=== PATIENT | female | born 1990 | race Caucasian/White ===

== ENCOUNTER → 2020-01-20 13:11 | Outpatient (CLI) | payer MEDICAID, SELFPAY ==
--- NOTE | 2020-01-20 13:12 | US_ITS ---
STUDY: SECOND AND THIRD TRIMESTER OBSTETRICAL ULTRASOUND REASON FOR EXAM: Female, 29 years old anatomy LMP: 08/07/2019. TECHNIQUE: Transabdominal TECHNICAL QUALITY: Adequate. PRIOR ULTRASOUND: None. FINDINGS: There is a single intrauterine fetus. The fetus is in a cephalic presentation. There is demonstrated cardiac activity with a heart rate of 137 bpm. There is a normal amniotic fluid volume. The largest amniotic fluid pocket measures 8.2 cm x 4.4 cm. The amniotic fluid index (DEEPA) is normal. The placenta is posterior in location and is not low lying. There are Grade 0 placental changes. The cervix measures 4.0 cm in length. There is a 5.7 cm x 4.1 cm x 4.7 cm echogenic density within the left ovary. Follow-up is recommended. This may represent a fat-containing mass such as a dermoid. BIOMETRY: BPD: 5.49 cm: 22 weeks, 5 days HC: 20.33 cm: 22 weeks, 3 days AC: 14.42 cm: 19 weeks, 5 days FL: 3.89 cm: 22 weeks, 3 days CI: 78.3% FL/BPD: 70.8% FL/HC: FL/AC: 27% HC/AC: age by current US: 22 weeks, 0 days. BRAYAN by current US: 05/25/2020. Estimated weight: 407 grams, +/- 60 grams. This is below the one percentile. This may be incorrect. Follow-up is recommended. Age by LMP: 23 weeks, 5 days. BRAYAN by LMP: 05/13/2020. ANATOMY: Gender: Female Cranium: Normal lateral ventricles. Normal choroid plexus. Normal cerebellum. Normal cisterna magna. Normal face, nose and lips. Chest: Normal 4-chamber heart. Abdomen/Pelvis: Normal diaphragm. The stomach is non-visualized. Normal abdominal wall. Normal cord insertion. Normal 3 vessel cord. Normal kidneys. Normal bladder. Spine: There is subcutaneous visualization of the entire spine due to positioning. Follow-up is recommended. Extremities: Normal bilateral upper extremities. Normal bilateral lower extremities. US/OB Anatomy Scan IMPRESSION: Single live intrauterine gestation with a mean gestational age of 22 weeks. Follow-up sonogram is recommended for further assessment of the weight as well as the spine. Electronically Signed: Ed Luong, at 14:57 EDT , Service support ,
== END ==
PROVIDERS: Referring Provider Obstetrics & Gynecology; Visit Provider Obstetrics & Gynecology
DX: Z36.9 Encounter for antenatal screening, unspecified (principal); Z3A.22 22 weeks gestation of pregnancy
CPT/HCPCS: 76805

== ENCOUNTER → 2020-01-29 11:17 | Outpatient (CLI) | payer MEDICAID, SELFPAY ==
[2020-01-29 10:12] VITALS: BMI 25.0
[2020-01-29 11:51] LABS: Absolute Lymphocyte Count 1.85 X10^3/uL (0.83-4.51); Absolute Neutrophil Count 10.9 X10^3/uL (2.0-7.7); Basophil# 0.06 X10^3/uL; Basophil% 0.4 % (0-1); Eosinophil# 0.21 X10^3/uL; Eosinophils% 1.5 % (0-5); Hematocrit 37.9 % (37-47); Hemoglobin 12.7 g/dL (12.0-15.0); Lymphocyte # 1.85 X10^3/ul (4.0); Lymphocyte % 13.5 % (19-41); Mean Corp Hgb Conc 33.5 g/dL (32-36); Mean Corpuscular Hgb 31.3 pg (27.0-32.0); Mean Corpuscular Volume 93.3 fL (81-99); Mean Platelet Vol. 11.1 fl (6.2-12.0); Monocyte# 0.57 X10^3/uL; Monocyte% 4.2 % (0-10); NRBC Flagged by Analyzer 0 % (0-5); Neutrophil # 10.92 X10^3/uL (2.7-7.7); Neutrophil % 79.6 % (47-70); Platelet Count 273 K/mm3 (150-450); RBC Distribution Width CV 13.2 % (11.6-14.6); RBC Distribution Width SD 45.1 fl (35.1-43.9); Red Blood Count 4.06 M/mm3 (4.2-5.4); White Blood Count 13.7 K/mm3 (4.4-11.0)
[2020-01-29 12:16] LABS: Amphetamine Urine VISTA POSITIVE (<1000 ng/mL); Barbiturate Urine VISTA NEGATIVE (< 200 ng/mL); Benzodiazepine Urine VISTA NEGATIVE (< 200 ng/mL); Cocaine Urine VISTA NEGATIVE (< 300 ng/mL); Ecstacy Urine VISTA POSITIVE (< 500 ng/mL); Methadone Urine VISTA NEGATIVE (< 300 ng/mL); PCP Urine VISTA NEGATIVE (< 25 ng/mL); THC Urine VISTA POSITIVE (< 50 ng/mL); Vista UDS pH Range 6
[2020-01-29 13:43] LABS: HIV - WCH Non-Reactive (Nonreactive); Hepatitis B Surface Antigen Non-Reactive (Nonreactive); Hepatitis C Antibody Non-Reactive (Nonreactive); Rubella IgG 81.2 IU/mL
[2020-01-29 14:14] LABS: Chlamydia Trachomatis by PCR Negative (Negative); Neisserai gonorrhoeae by PCR Negative (Negative); Probe Check PASS; Sample Adequacy Control PASS; Specimen Processing Control PASS
[2020-01-29 15:48] LABS: NATERA MAILED SPECIMEN
[2020-02-03 03:19] LABS: HPV APTIMA, High Risk Negative (Negative)
[2020-02-04 11:06] LABS: Rapid Plasmin Reagin (RPR) NONREACTIVE (NONREACTIVE)
== END ==
PROVIDERS: Referring Provider Obstetrics & Gynecology; Visit Provider Obstetrics & Gynecology
DX: Z34.82 Encounter for supervision of other normal pregnancy, second trimester (principal); Z31.430 Encounter of female for testing for genetic disease carrier status for procreative management
CPT/HCPCS: 80307; 85025; 86592; 86703; 86762; 86803; 86850; 86900; 86901; 87086; 87088; 87340; 87491; 87591; 87624; 88175; G0145

== ENCOUNTER 2020-05-05 09:20 | Inpatient (IN) | payer MEDICAID, SELFPAY ==
[2020-01-29 10:12] VITALS: BMI 25.0
[2020-05-05] VITALS (42 sets, daily range): BP systolic 112–209; BP diastolic 55–131; PULSE 50–100; RESP 16–18; TEMP 35.7–36.9; O2SAT 92–100; BMI 27.9
[2020-05-05] MEDS: Lactated Ringers 1,000 ML 200 ML IV (09:40)
[2020-05-05 10:03] LABS: ROM Internal Control Test YES-OK TO RESULT pt. (Internal QC)
[2020-05-05 10:06] LABS: ROM Patient Test POSITIVE (Negative)
[2020-05-05 10:39] LABS: Absolute Neutrophil Count 6.6 X10^3/uL (2.0-7.7); Basophil# 0.03 X10^3/uL; Basophil% 0.3 % (0-1); Eosinophil# 0.07 X10^3/uL; Eosinophils% 0.8 % (0-5); Hematocrit 32.9 % (37-47); Hemoglobin 10.3 g/dL (12.0-15.0); Lymphocyte % 19.3 % (19-41); Mean Corp Hgb Conc 31.3 g/dL (32-36); Mean Corpuscular Hgb 26.3 pg (27.0-32.0); Mean Corpuscular Volume 83.9 fL (81-99); Mean Platelet Vol. 12.8 fl (6.2-12.0); Monocyte% 4.6 % (0-10); NRBC Flagged by Analyzer 0 % (0-5); Neutrophil # 6.55 X10^3/uL (2.7-7.7); Neutrophil % 74.5 % (47-70); Platelet Count 164 K/mm3 (150-450); RBC Distribution Width CV 14.9 % (11.6-14.6); RBC Distribution Width SD 44.5 fl (35.1-43.9); Red Blood Count 3.92 M/mm3 (4.2-5.4); White Blood Count 8.8 K/mm3 (4.4-11.0)
[2020-05-05 10:54] LABS: Amphetamine Urine VISTA POSITIVE (<1000 ng/mL); Barbiturate Urine VISTA NEGATIVE (< 200 ng/mL); Benzodiazepine Urine VISTA NEGATIVE (< 200 ng/mL); Cocaine Urine VISTA NEGATIVE (< 300 ng/mL); Ecstacy Urine VISTA POSITIVE (< 500 ng/mL); Methadone Urine VISTA NEGATIVE (< 300 ng/mL); PCP Urine VISTA NEGATIVE (< 25 ng/mL); THC Urine VISTA POSITIVE (< 50 ng/mL); Vista UDS pH Range 7
[2020-05-05] MEDS: Lactated Ringers 500 ML 999 ML IV ×2 (11:15→12:50)
[2020-05-05 11:26] LABS: International Normalized Ratio 0.9; Prothrombin Time (Protime)PT. 11.8 SECONDS (11.7-14.9)
[2020-05-05 11:27] LABS: Partial Thromboplast Time 25.5 Seconds (24.1-36.2)
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
[2020-05-05 12:31] LABS: Group B Strep DNA By PCR Negative (Negative); Internal Control PASS; Probe Check PASS; Specimen Processing Control PASS
[2020-05-05] MEDS: fentaNYL-bupivacaine (epidural) 100 ML BAG EPIDURAL (13:43)
[2020-05-05] MEDS: Oxytocin 30 units/NS 500 ml 30 UNITS/500 ML IV.SOLN 334 UNITS IV (14:36)
--- NOTE | 2020-05-05 15:05 | PLAC_PTH ---
PATIENT: CHAITANYA FUENTES LOC: WP U#:[id number] AGE/SX: 29/F ROOM: WP002 RE05/05/[address]: Dr. Erin Bishop MD : 1990 BED: 1 DIS: 05/06/2020 SPEC #: [id number] RECD: 05/05/20 15:14 STATUS: ALEJANDRO REAnnabella #: [id number] BENNY: 05/05/20 15:[address]: Erin Bishop DEPT: SURGICAL PATHOLOGY RECD BY: Anjelica Levine ENTERED: 05/06/20 07:40 SP TYPE: PLACENTA OTHR DR: No Primary Care Phys Tissues: Placenta, NOS Procedures: Surgery Specimen Level V HEADER OPERATION: Vaginal delivery PRE-OP DIAGNOSIS: Labor TISSUE SUBMITTED: Placenta MICROSCOPIC DIAGNOSIS Loera placenta (551 gm): Umbilical cord - trivascular with no inflammation. Placental membranes - no pathologic change. Placental disc - focal intraparenchymal organizing hemorrhage, mildly increased intraparenchymal fibrin plaques and Myron-Rai change. AM:alicja 05/09/20 MICROSCOPIC DESCRIPTION Slides are reviewed. GROSS DESCRIPTION SPECIMEN: PLACENTA / CLINICAL INFORMATION: A. Weight: 3.17 kg B. Gestational Age: 37 weeks C. Sex: Female PLACENTAL WEIGHT (POST FIXATION): 551 gm PLACENTAL DIMENSIONS: 17 x 16 x 4 cm PLACENTAL SHAPE: Usual ovoid. Body of placenta is disrupted, completeness of placenta cannot be assessed. PLACENTAL WEIGHT FOR GESTATIONAL AGE: Within 10-99th percentile MEMBRANES - Present A. Insertion: Marginal B. Site of rupture from edge: Membranes are partially fragmented and appears to rupture 6 cm from edge of placental disc C. Color of membrane: Whittaker-tom D. Abnormalities: None UMBILICAL CORD - Present A. Color: Whittaker-tom B. Insertion: Paracentral C. Length: 35 cm D. Diameter: 1.2 cm E. Number of vessels: Three F. Abnormalities: None PLACENTAL DISC - Present A. Color of surface: Whittaker-tom B. surface abnormalities: None C. Maternal cotyledons: Intact with minimal tears D. Attached retro placental clot: No clot E. Cut surface: Dark red and spongy F. Lesions: None G. Separate clot: Absent SECTIONS SUBMITTED: 1. Membrane roll 2. Cord, maternal end 3. Cord, end 4. Placental disc, and maternal surfaces 5. Placental disc, and maternal surfaces 6. Placental disc, and maternal surfaces SJ:alicja 05/06/20 TC:5 CPT: 91070
[2020-05-05 15:30] LABS: Pathology Specimen OB SEE PATHOLOGY REPORT
[2020-05-05] MEDS: CLARIFY ORDER NOTE (15:49)
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
--- NOTE | 2020-05-05 16:30 | CASEMGMT ---
Social Work Labor and Delivery Unit Reason for intervention: Referral to [facility] ([facility]), Radha Martinez, extension [phone] Summary: Referral to Radha Martinez due to concerns regarding substance exposed in utero. Reported maternal drug screens positive for amphetamines, methamphetamine/MDMA, and cannabinoids upon admission on 05/05/2020 and then at the first care appointment on file dated 01/29/2020. Reported infant drug screen still pending. Additional concerns include MOB reporting the father of baby (FOB) also using methamphetamines, maternal history with children services and non-custody of any of her older children, maternal mental health history and not currently in treatment, and questionable housing with parents living in a camper. Also the parents do not quite have all of the needed supplies to care for the baby at home going. Brief maternal and infant histories provided. Assessment: Referral will be screened in for investigation and somebody from children services will be responding. Plan: Social work to continue to follow and assist. Baby should not be discharged to the MOB until safe plan can determined in conjunction with children services. Will be following back up with the MOB and FOB tomorrow, 05/06/2020, for provision of resources. No other services requested or indicated. -JUNIE Chand, ELBA *Information documented in this note generated via [employer] system*
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
[2020-05-05] MEDS: 0.9% Saline Lock 10 ML Syringe IV (18:13)
--- NOTE | 2020-05-05 21:24 | NURSING ---
Pt sleeping in bed with infant upon RN rounding. RN woke up pt, placed infant in crib. discussed safe sleeping/SIDS. pt drowsy, does not make eye contact during conversation and quickly falls back to sleep.
--- NOTE | 2020-05-05 23:45 | NURSING ---
As RN in room completing vitals and assessment, fob on phone and states what do you have? Im interested in a nerissa-ray player, im at the hospital, ill come tonight Once FOB hung up phone, MOB told FOB youre not going anywhere tonight
--- NOTE | 2020-05-05 23:55 | NURSING ---
FOB back in room. MOB laying in bed, groggy, answers questions appropriately and follows commands. pt asked FOB wheres our baby? as baby laying in crib right next to pt.
[2020-05-06] MEDS: Ibuprofen 600 MG Tablet PO ×2 (00:03→08:51)
--- NOTE | 2020-05-06 02:24 | NURSING ---
0118 mother requesting to go outside to smoke, RN discussed [facility] is a smoke free facility and smoking is not recommended. pt verbalized understanding and requested to go outside to smoke. to [place] 0125 mother signed assumption of risk form with mmd unit teacher and ambulated off unit accompanied by ALESSANDRA 0145 FOCali back on unit, walked into room 2, this RN went into room to return back to [facility]. ALESSANDRA found rummaging through belongings and stated can you keep her longer, i need to find my keys, shes (Tania) is outside enjoying herself, ill be back in a couple minutes, i wont be long i promise RN took baby back to [place] 0220 pt back on unit, reported to mmd unit teacher I got lost in elevator for 15 minutes, i couldnt figure out how to get out, the back door opened and i went out and then i went back into elevator. once back on unit, pt went back to room, did not call RN for infant to return
[2020-05-06 03:05] VITALS: BP 117/86; PULSE 85; RESP 16; TEMP 36.6; O2SAT 100
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
--- NOTE | 2020-05-06 07:56 | DCINST_ITS ---
Discharge Diet: No Restrictions Discharge Activity: Return to Normal Activity, May not drive while taking narcotic pain medications., May Shower May resume sexual activity in: 4-6 weeks Additional Activity Instructions:: Nothing in the vagina for 4-6 weeks. You may return to work/school in 6 weeks. Call your doctor if your incision/area has: Continuous Slow Oozing, Sudden Increased Bleeding, Increased Pain/ Swelling, Increased Redness, Foul Smelling Discharge Additional Instructions: If you experience any of the following, contact your healthcare provider. * Bleeding that soaks a pad every hour for 2 hours * Fever 100.4 or higher * Unrelieved incision or abdominal pain * Swelling, redness, discharge or bleeding from your incision or episiotomy site * Your incision begins to separate * Problems urinating (including inability to urinate or burning while urinating). * Visual changes * Severe headache * Flu-like symptoms * Pain or redness in one of both of your breasts * Pain, warmth, tenderness or swelling in your legs, especially the calf area * Frequent nausea and vomiting * Symptoms of depression or anxiety If you experience any of the following, call 911 or go to the nearest Emergency Room. * Chest pain * Problems breathing * Seizure activity * Partial or complete paralysis of a body part, slurred speech, weakness or drooping of the face, or a sudden inability to walk or hold your balance Allergies/Adverse Reactions: Allergies aspirin Allergy (Verified 05/05/20 09:48) Hives Fish Containing Products Allergy (Verified 05/05/20 09:48) Hives fluoxetine HCl [From Prozac] Allergy (Verified 05/05/20 09:48) Hives Penicillins Allergy (Verified 05/05/20 09:48) Hives venom-honey bee [bee venom (honey bee)] Allergy (Verified 05/05/20 09:48) Hives WOOL Allergy (Uncoded 05/05/20 09:48) Hives Medications to take at Discharge pediatric multivitamin 1 tab PO DAILY 01/29/20 Albuterol Sulfate [Proair Respiclick] 1 inh INHALATION PRN PRN 05/05/20 Famotidine 20 mg PO DAILY 05/05/20 Ibuprofen [Motrin] 600 mg PO Q6H PRN PRN #30 tab 05/06/20 The following prescriptions were given: Ibuprofen [Motrin] 600 mg PO Q6H PRN PRN #30 tab PRN Reason: Pain Transmission Status: Sent to [facility] When: Call to make an appointment with your doctor in 6 weeks. If you had elevated Blood Pressure or 4th degree laceration you will need to be seen in 2 weeks. Primary Care Physician: Care Physician,No Primary [Primary Care Provider] - Test Results: Test results from this visit will be discussed in further detail at your follow- up appointment, if applicable.
[2020-05-06 08:45] VITALS: BP 99/74; PULSE 72; RESP 16; TEMP 36.7
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
--- NOTE | 2020-05-06 12:34 | NURSING ---
[id number] nurse stepped into room baby on back in crib parked beside moms bed. Baby is crying loudly and continued to cry during nursing assessment. Mom nor dad woke up. Nurse spoke moms name several times loudly and then tapped several times on shoulder before mom woke up. Mom cont to be groggy during assessment. FOB sleeping in bed with mom- never woke up during baby crying or assessment and talking with mom.
[2020-05-06 14:00] VITALS: BP 115/77; PULSE 68; RESP 16; TEMP 36.6
--- NOTE | 2020-05-06 14:39 | NURSING ---
mom sleeping despite talking in room, slept through VS and fundal assessment. Did follow commands no eye opening or other interactions
--- NOTE | 2020-05-06 14:51 | CASEMGMT ---
Social Work Labor and Delivery Unit Reason for intervention: Collaboration with [facility] Nina Rdz, , extension [phone]. Collaboration with nursing staff. Meeting with mother of baby (M OB) and the reported father of baby (FOB). Summary: This law writer informed by nursing that MOB and FOB signed off the unit at approximately 1140. At approximately 1250 this law writer received a phone call from [facility] Nina Rdz updating this law writer that identified individuals for safety plan are not working out. Children services looking at filing for custody, and uncertain whether this will be able to occur today or Saturday. This law writer updated Nina to this law writer finding MOB sleeping with baby today, as well as reviewed additional nursing documentation from this shift. This law writer spoke with Nina again from children services at approximately 1330. Let Nina know that baby still in the nursery being cared for by nursing staff. No parent had come to claim the baby. This law writer alerted by nursing staff that FOB back on the unit at about 1330 as well, and wanting to speak to somebody about what is happening with the safety plan. This law writer then received a phone call from a woman named Chayito Morales, , identifying self as the FOB younger sister and wanting to know who to talk to about the status of the baby and the paternal side of the family willing to help care for the baby's needs. This law writer answered and generalities and explained that children services would be here to contact and make an inquiry. Also informed Chayito that if children services had been to see somebody they would have left a card and this may be something to suggest to the family who are in the hospital as well. This law writer presented to the [facility] hospital room. FOB was at the nursery door trying to get the baby. This law writer assisted with and verified baby bands to ensure safety of baby being delivered to the appropriate person. This law writer and FOB went to the room and this law writer found MOB sprawled across the bed, appearing pale, and sleepy. MOB was able to open her eyes and respond to questions but would immediately close eyes. This law writer made inquiry to both parents, as to whether the parents use any type of drugs while off the unit, as level of tiredness in [facility] a big change from earlier today. Both parents denied using any drugs. MOB reported she was gone from the unit for only 20 minutes, and had asked for the baby to be brought to her. MOB unable to say who she asked for such request. ALESSANDRA reports he just arrived back to the unit at 1330. This law writer reinforced that when parents are off the unit that breaks need to be short and need to be able to come back to take care of the baby. FOB started asking the baby if the baby was hungry. This law writer inquired as to what time the parents last fed the baby. MOB open her eyes and stated last feed was when children services was around, but neither parent able to state what time that was. This law writer suggested and strongly encouraged the parent start writing down feeding times. This law writer went to get more formula, and asked nursing to also look at the mother of baby, as this law writer concerned about MOB level of sleepiness. Upon this law writer returning to the room with some formula the MOB was no longer talking, but sleeping soundly, taking deep breaths, and snoring. MOB did not arouse or respond at all during this law writer and father of baby holding a conversation. This law writer asked FOB again whether MOB may have ingested any type of substances as the mother seems quite sleepy, more so than had earlier in the day. FOB reported that sometimes MOB acts like this when her blood sugar is low and voiced acknowledgement that MOB appearing pale. FOB reports he did not witness MOB taking any type of drugs, but that MOB did leave FOB's presence and came back to the hospital first. FOB states I was blowing up her phone after MOB left the car. 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 FOB inquired as to whether children services will not approve ALESSANDRA's mom, because the FOB has not been established as the biological father. This law writer explained that uncertain, but that this would be a question for children services. This law writer encouraged ALESSANDRA to to have his family call children services, if the family has further questions. This law writer left the room for a few minutes to check as to when MOB signed herself back in. Noted that MOB was signed out from 1145 until 1220. This law writer checked with 3 different nurses and none were made aware of MOB return nor had MOB arrived to the nursery asking for the baby to be brought back. This law writer returned back to the room and found FOB holding the baby and sitting on the couch, no movement had been made to feed the baby. FOB reported he was just thinking that his head was spinning with thoughts. Assessment: Children [facility] is actively working on a plan for baby. Awaiting on update. MOB minimally involved in conversation after returning from outside and now sleeping soundly. Nursing has been made aware. FOB is up, and alert, holding the baby in the room. FOB's conversation however was repetitive and talking about wanting to take the baby, and wondering why his mother might not be an appropriate person. Talking of it being time to grow up and be responsible for the baby. Plan: Awaiting update from children services. -JUNIE Chand MSW *Information documented in this note generated via [employer] system*
--- NOTE | 2020-05-06 18:25 | CASEMGMT ---
Social Work Labor and Delivery Unit Reason for intervention: Collaboration with [facility] Nina Rdz and Anny Landers; collaboration with nursing staff general education professor; communication with mother of baby (MOB) and father of baby (FOB) Summary: This tech writer presented back to mother of baby's room to check and see how MOB was doing. This tech writer could hear MOB and FOB through closed door with raised voices and cursing at each other. This tech writer entered the room to make sure things were okay and indeed found MOB and FOB voicing angry words at each other, and FOB packing bags up to leave. FOB left the room with belongings. Checked in with MOB as to how MOB was doing. MOB reports frustration with FOB accusing MOB of things. MOB also reports frustration because FOB reportedly alleged talking to professionals about MOB past children services cases. When this tech writer attempted to explore what FOB allegedly knew, the MOB was vague stating everything. This tech writer explored whether MOB had concerns for safety when arguing was going on. MOB denies any abuse or that FOB has ever physically hurt MOB. This tech writer stepped out of the room to take a phone call from Nina Rdz. This tech writer updated Nina to interactions with MOB and FOB after they returned from an outside smoking break. Updated to observation later this afternoon with MOB and FOB arguing. Nina reports that [facility] did file for custody of the baby and have been granted emergency custody. This tech writer back to MOB room. MOB making comments about not wanting to have the baby removed, and that would likely go ahead and relapse again on drugs if children services takes custody of the baby. This tech writer attempted to explore whether MOB might consider residential treatment if recommended. MOB adamantly denied as an option because did not want to do that to my other daughter. Let MOB know that children services was coming to the hospital to update. Children services arrived to the unit and this tech writer still in room with MOB.. MOB presented with emergency custody paperwork by children services sales representative gas service. Children services okayed for MOB to visit with the baby for a little bit as long as this was supervised. FOB returned back to the hospital and requested to see the baby, and agreed to take MOB home. This tech writer set clear boundaries with FOB as to what will and will not be tolerated on the unit. FOB agreed. This tech writer checked with MOB as to whether she was agreeable with FOB returning to the unit. MOB agreed. This tech writer also set expectations with the MOB. Provided MOB with [facility] resource list and depression packet. This was packed away in MOB personal belongings as MOB was preparing for discharge. Assessment: MOB and FOB exhibiting irritability and anger towards each other as evidenced by raised voices and cursing. MOB was alert and oriented during the later part of the afternoon. MOB claimed she was sleeping so heavily due to depression and having to deal with the FOB. MOB did become tearful when found out about loss of custody of the baby. FOB also was tearful and crying when presenting back to the hospital. MOB and FOB getting along with each other as they said their goodbyes to the baby. Note during private conversation with the MOB this afternoon, this tech writer did explore with MOB whether MOB had any thoughts of suicide during or at this time. MOB denied. Plan: MOB is discharging to home with the FOB transporting. MOB has been provided with community resource list and information on depression and anxiety. Baby will remain at [facility] today, with plan for discharge tomorrow 05/07/2020, so long as medically stable. [facility] now has custody of . We will make help me grow referral. No other services requested or indicated, however if needs arise there will be a social work specialist available on 05/07/2020. -JUNIE Chand, ELBA *Information documented in this note generated via [employer] system*
--- NOTE | 2020-05-17 14:56 | CASEMGMT ---
Social Work Labor and Delivery Unit Received written request, along with release of information, from Nina Rdz at [facility] requesting records on both patient/mother of baby and MOB's infant Chan Morales. As [facility] now has temporary custody of the baby, as a release as been signed by mother of baby for self and baby, and request is in direct relation to a child protective investigation started from this editorial writer's referral as mandated market reporter, this editorial writer worked on completing request. [facility] with [facility] Meseret Calderon regarding request and before information submitted to [facility]. Faxed requested information to confirmed fax of [phone], attention Nina Rdz, for the continuity of care of baby. Faxed: nursing notes (all categories) which includes social work notes, toxicology results, and physician reports. Written request and release of information sent to HIM department. This editorial writer did verbally update Nina at [facility] of baby's meconium drug screen results, which show positive for methamphetamines. Fentanyl screen is negative. [facility] referral not completed by this editorial writer, as [facility] does typically do this for families in which the agency is involved. Message to Nina at [facility] and if said agency did not complete, then this editorial writer will do so. No other services requested or indicated. -BUD Chand, VOLUNTEER MANAGER
== END 2020-05-06 18:05 | disposition home or self-care (01) | DRG 560 ==
PROVIDERS: Admitting Provider Obstetrics & Gynecology; Referring Provider Obstetrics & Gynecology; Visit Provider Obstetrics & Gynecology
DX: O99.52 Diseases of the respiratory system complicating childbirth (principal); J45.909 Unspecified asthma, uncomplicated; F17.200 Nicotine dependence, unspecified, uncomplicated; O99.334 Smoking (tobacco) complicating childbirth; F15.11 Other stimulant abuse, in remission; Z3A.37 37 weeks gestation of pregnancy; Z37.0 Single live birth
CPT/HCPCS: 36415; 59025; 59050; 80307; 84112; 85025; 85610; 85730; 86850; 86900; 86901; 87081; 87426; 87653; 88307; 99218; J7120; A4216; G0378; J3490

== ENCOUNTER 2023-01-15 11:39 | Emergency (ER) | payer MEDICAID, SELFPAY ==
[2023-01-15 11:42] VITALS: BP 134/69; PULSE 89; RESP 14; TEMP 36.6; O2SAT 97
--- NOTE | 2023-01-15 11:51 | CT_ITS ---
STUDY: CT ABDOMEN AND PELVIS WITH CONTRAST REASON FOR EXAM: Female, 32 years old. Hypoglycemia -- r/o pancreatic mass RADIATION DOSAGE (If Supplied By Facility): CTDIvol = ( 18.10 ) mGy, DLP = ( 1281.14 ) mGycm TECHNIQUE: Transaxial images were obtained from the dome of the diaphragm to the symphysis pubis without oral contrast. IV 100mL Isovue-300 was administered. Sagittal and coronal images were reconstructed. Individualized dose optimization techniques were used for this CT. COMPARISON: None. FINDINGS: The visualized lung bases are unremarkable. The visualized portions of the heart are within normal limits. Normal liver. There is a solitary gallstone. Normal spleen. Normal pancreas. Normal bilateral adrenal glands. Normal right kidney. Normal left kidney. Normal visualized stomach. Normal small intestine. Normal colon. The appendix is visualized and appears normal. Normal abdominal aorta. Normal inferior vena cava. Normal retroperitoneum. Normal urinary bladder. There is a 4.6 cm x 4.2 cm fat-containing mass in the left adnexa with peripheral calcification. This is suggestive of a teratoma. There is a small umbilical hernia containing fat. This space narrowing and degeneration with spondylosis at the L5-S1 level. CT/Abdomen/Pelvis W IV Cont ONLY IMPRESSION: Solitary gallstone. No pancreatic mass. Findings in keeping with a 4.6 cm x 4.2 cm fat-containing mass in the left adnexa with peripheral calcification suggestive of a teratoma. Electronically Signed: Ed Luong MD at 13:37 EDT ,
--- NOTE | 2023-01-15 11:52 | EX.ED.DYSGE1 ---
HPI History of Present Illness Chief Complaint: Hypoglycemia Informant: patient Narrative Narrative: Presents to ED for concerns of hypoglycemia glucose of 41 on her glucose meter. She was incarcerated for 8 months discharged approximately week ago. States while incarcerated she was hypoglycemic states work-up there with ultrasound had a inconclusive evaluation of her pancreas. She has a glucose monitor because of this. This morning alarm went off she states she was nauseous and sweaty. She has been drinking sugared drinks a lot of Mountain Dew. She had 4 glucose tabs prior to arrival. Denies abdominal pain. Denies cough or urinary symptoms. No fevers. No vomiting. States he is trying to get reestablished another doctor as she cannot see her previous healthcare provider Celeste Winston. 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 Prior similar symptoms: Yes PFSH PFSH Medical History Asthma Blood transfusion affecting Home Medications pediatric multivitamin (Flintstones Multivitamin chewable tablet) 1 tab PO DAILY supplement 01/29/20 [History Last Taken 05/04/20] albuterol sulfate 90 mcg/actuation breath activated powder inhaler 1 inh inhalation PRN PRN Asthma 05/05/20 [History Last Taken Unknown] famotidine 20 mg tablet 20 mg PO DAILY antacid 05/05/20 [History Last Taken 05/05/20 08:00] ibuprofen 600 mg tablet 600 mg PO Q6H PRN PRN Pain #30 tabs 05/06/20 [Rx Last Taken Unknown] Allergy/AdvReac Type Severity Reaction Status Date / Time aspirin Allergy Hives Verified 01/15/23 11:42 Fish Containing Products Allergy Hives Verified 01/15/23 11:42 fluoxetine HCl [From Prozac] Allergy Hives Verified 01/15/23 11:42 Penicillins Allergy Hives Verified 01/15/23 11:42 venom-honey bee Allergy Hives Verified 01/15/23 11:42 [bee venom (honey bee)] wool Allergy Hives Verified 01/15/23 11:42 Family History Mother Diabetes Myocardial infarction Father Heart disease Myocardial infarction Cancer Bone marrow cancer Surgical History History of colposcopy Hx of tonsillectomy Social History adopted: No household members: family housing: house number of children: 4 current occupational status: unemployed pets and animals: No history of recent travel: No sexually active: Yes Smoking Status: Current every day smoker tobacco type: cigarettes second hand exposure: Yes alcohol intake: never substance use type: marijuana seatbelt use: always do you feel safe at home: Yes additional social history: [employer]- seasonal worker ROS ROS ED Constitutional Constitutional ED: Reports sweats; Denies chills or fever(s) Eyes Eyes: Denies change in vision ENT ENT ED: Denies dysphagia or sore throat Cardiovascular Cardiovascular: Denies chest pain, leg edema, palpitations or racing heartbeat Respiratory/Chest Respiratory/Chest: Denies cough, dyspnea or dyspnea on exertion Gastrointestinal Gastrointestinal: Reports nausea; Denies abdominal pain, diarrhea or vomiting Genitourinary Genitourinary ED: Denies dysuria, hematuria or urinary frequency Musculoskeletal Musculoskeletal: Denies back pain, extremity pain or neck pain Integumentary Denies rash or wounds Neurologic Neurologic: Denies headache(s), paresthesias or weakness EXAM Physical Exam Const Vital Signs: 01/15/23 11:42 01/15/23 14:23 Temperature 98 F Temperature Source Temporal Pulse Rate 89 83 Respiratory Rate 14 16 Blood Pressure 134/69 H 117/67 Blood Pressure Mean 90 83 Pulse Ox 97 96 Oxygen Delivery Method Room Air Room Air Positive well nourished and well developed General Appearance ED: well developed and NAD HEENT Reports moist mucous membranes normocephalic and atraumatic Eyes PERRL, EOMs intact bilaterally and conjunctivae normal General Eye ED: Yes normal appearance of both eyes Neck no lymphadenopathy and supple General: Negative for tenderness Chest Wall Chest: Negative for tenderness Resp normal respiratory effort and normal air movement Effort and Inspection: symmetric chest movement; Negative for respiratory distress Cardio regular rate, regular rhythm and no murmurs Peripheral Pulses: pulses 2+ throughout GI normal to inspection, nondistended, normoactive bowel sounds and non-tender Palpation: Negative for guarding or rebound tenderness present Back/Spine no CVA tenderness and no thoracic nor lumbar tenderness Extremity normal to inspection General Extremety ED: Negative for edema or tenderness General Extremity: Negative for edema Neuro oriented x3 and no sensory deficits noted Sensorium / Orientation: awake and alert Skin no rashes or lesions noted and no wounds MDM MDM MDM Narrative Medical decision making narrative: Interventions / MDM: Differential diagnosis: Hypoglycemia Diagnosis considered but do not suspect: Pancreatic mass, however CT scan negative. My EKG interpretation: N/A Imaging independently reviewed and interpreted by myself: CT abdomen pelvis IV contrast no pancreatic mass, there is noted teratoma 4.6 cm left adnexal region. Solitary gallstone noted. External documents reviewed: N/A Test considered but not ordered:N/A ED course: Vital signs stable fingerstick glucose 158 on arrival. She will be monitored. Reported clinical ultrasound for pancreatic mass, labs will be drawn, will obtain a CT scan abdomen pelvis IV contrast for structural evaluation. Labs are stable glucose stable rechecked multiple x103. CT scan negative. However the note left adnexal concerning teratoma. Discussed with patient she was told of a cyst in the past from records at dermoid cyst was reported. She is seen [facility] in the past also last time 3 years ago. She is given follow-up with of them for outpatient evaluation of this for further management and treatment options. Follow-up with the PCP and endocrinology. She will monitor her glucose. Return precautions. All questions were answered. Re-evaluation: stable Disposition discussed with patient/family/significant other: Patient Case discussed with consulting clinician: N/A This note was generated with [employer] dictation software. It may contain incorrect words, spelling, and punctuation that were not noted in checking the note before signing. Lab Data Attestation: I reviewed the patient's lab results. Labs: Laboratory Results - last 24 hr 01/15/23 01/15/23 01/15/23 11:48 12:14 12:19 WBC 6.8 RBC 4.76 Hgb 14.3 Hct 43.7 MCV 91.8 MCH 30.0 MCHC 32.7 RDW Std Deviation 43.0 RDW Coeff of Janeth 12.8 Plt Count 254 MPV 11.1 Sodium 138 Potassium 3.3 L Chloride 108 H Carbon Dioxide 26.0 Anion Gap 4 L BUN 8 Creatinine 0.75 Est GFR (MDRD) Af Amer 114 Est GFR (MDRD) Non-Af 94 BUN/Creatinine Ratio 10.7 Glucose 106 Calcium 9.0 Total Bilirubin 0.40 AST 11 L ALT 15 Alkaline Phosphatase 98 Total Protein 7.7 Albumin 3.7 Globulin 4.0 Albumin/Globulin Ratio 0.9 Lipase 32 Serum , Qual NEGATIVE POC Glucose 158 H 119 H 01/15/23 13:42 WBC RBC Hgb Hct MCV MCH MCHC RDW Std Deviation RDW Coeff of Janeth Plt Count MPV Sodium Potassium Chloride Carbon Dioxide Anion Gap BUN Creatinine Est GFR (MDRD) Af Amer Est GFR (MDRD) Non-Af BUN/Creatinine Ratio Glucose Calcium Total Bilirubin AST ALT Alkaline Phosphatase Total Protein Albumin Globulin Albumin/Globulin Ratio Lipase Serum , Qual POC Glucose 103 Radiography Diagnostic Testing: Clinical Impression(s) from Imaging Studies Abdomen/Pelvis CT 01/15/23 11:51 IMPRESSION: Solitary gallstone. No pancreatic mass. Findings in keeping with a 4.6 cm x 4.2 cm fat-containing mass in the left adnexa with peripheral calcification suggestive of a teratoma. Electronically Signed: Ed Luong MD at 13:37 EDT , Discharge Plan Triage Chief Complaint: Hypoglycemia ED Provider: Idris Pang Dx/Rx/DC Orders Clinical Impression: Hypoglycemia, Teratoma of pelvis, Cholelithiasis Instructions: ED Hypoglycemia, Nondiabetic, ED Tumor, Uncertain Cause Prescriptions: No Action Flintstones Multivitamin Tablet,Chewable 1 tab PO DAILY famotidine 20 MG tablet 20 mg PO DAILY albuterol sulfate 90 MCG aerosol powdr breath activated 1 inh INHALATION PRN PRN (Reason: Asthma) ibuprofen 600 MG tablet 600 mg PO Q6H PRN PRN (Reason: Pain) Qty: 30 0RF Primary Care Provider: Care Physician,No Primary Referrals: Livia Fowler MD [Med Staff - Active Staff] - 1 Week Anny Mckeon DO [Med Staff - Active Staff] - 3-5 Days Aleksey Laureano MD [Med Staff - Courtesy Staff] - 1 Week Care Physician,No Primary [Primary Care Provider] - Activity Restrictions/Additional Instructions: Glucose stable CT scan negative for any pancreatic etiology. Incidental solitary gallstone was noted. Follow-up with the PCP and given follow-up with endocrinology. Call for outpatient follow-up. If noted teratoma/dermoid cyst left adnexal region. 4.6 x 4.2 cm. You have seen [facility] in the past. Call for follow-up with them. Monitor glucose. Return if worsening symptoms. Disposition Disposition: Home, Self Care Discharge Date/Time: 01/15/23 14:35
[2023-01-15 12:06] LABS: Bedside Glucose 158 mg/dL (74-106)
[2023-01-15 12:27] LABS: Hematocrit 43.7 % (37-47); Hemoglobin 14.3 g/dL (12.0-15.0); Mean Corp Hgb Conc 32.7 g/dL (32-36); Mean Corpuscular Volume 91.8 fL (81-99); Mean Platelet Vol. 11.1 fl (6.2-12.0); Platelet Count 254 K/mm3 (150-450); RBC Distribution Width CV 12.8 % (11.6-14.6); Red Blood Count 4.76 M/mm3 (4.2-5.4); White Blood Count 6.8 K/mm3 (4.4-11.0)
[2023-01-15 12:33] LABS: Internal QC Validated? YES +Cl - CLEAR BKGD; Pregnancy, Serum, hCG Quali. NEGATIVE Negative
[2023-01-15 12:41] LABS: ALB/GLOB Ratio 0.9 RATIO (0.9-2.4); AST(SGOT) 11 U/L (15-37); Alanine Aminotransfer ALT/SGPT 15 U/L (13-56); Albumin, Serum 3.7 g/dL (3.2-5.0); Alkaline Phosphatase 98 U/L (45-117); Anion Gap 4 (5-15); BUN 8 mg/dL (7-18); BUN/Creat Ratio 10.7 RATIO (10-20); Chloride 108 mmol/L (98-107); Creatinine, Serum 0.75 mg/dL (0.55-1.02); EST Glomerular Filtration Rate 94 mL/min (>60); Est Glom Filt Rate - Afr Amer 114 mL/min (>60); Glucose 106 mg/dL (74-106); Lipase 32 U/L (13-75); Potassium 3.3 mmol/L (3.5-5.1); Protein, Total 7.7 g/dL (6.4-8.2); Sodium Level 138 mmol/L (136-145)
--- NOTE | 2023-01-15 13:04 | CM.ED ---
Social Work Note Referral Source: case find Referral Reason: no PCP SW met with patient and introduced herself and role as [facility] Vocational Instructor. Patient lying on hospital bed and agreeable to speak with SW. SW inquired about patient's insurance and current PCP. Patient verified insurance and reports no current PCP. SW provided patient with a list of local PCPs in network with patient's insurance and accepting new patients. Patient was receptive towards list and voiced no other needs. SW remains available if needs arise. Miriam Beadren MSW, SARAH
[2023-01-15 14:02] LABS: Bedside Glucose 103 mg/dL (74-106)
[2023-01-15 14:02] LABS: Bedside Glucose 119 mg/dL (74-106)
[2023-01-15 14:23] VITALS: BP 117/67; PULSE 83; RESP 16; O2SAT 96
== END 2023-01-15 14:35 | disposition home or self-care (01) ==
PROVIDERS: Emergency Provider Emergency Medicine; Visit Provider Emergency Medicine
DX: E16.2 Hypoglycemia, unspecified (principal); D39.8 Neoplasm of uncertain behavior of other specified female genital organs; K80.20 Calculus of gallbladder without cholecystitis without obstruction; F17.210 Nicotine dependence, cigarettes, uncomplicated; J45.909 Unspecified asthma, uncomplicated
CPT/HCPCS: 74177; 80053; 82962; 83690; 84703; 85027; 99285; Q9967; A4216

== ENCOUNTER → 2023-02-11 | Outpatient (CLI) | payer MEDICAID, SELFPAY ==
--- NOTE | 2023-02-11 16:47 | US_ITS ---
EXAM: US PELVIS TRANSABDOMINAL AND TRANSVAGINAL, COMPLETE CLINICAL INDICATION: pelvic pain TECHNIQUE: Transabdominal and transvaginal pelvic ultrasound was performed with grayscale and color Doppler imaging. Transvaginal imaging was used for better evaluation of the endometrium and adnexa. COMPARISON: CT abdomen pelvis 01/15/2023 FINDINGS: UTERUS/CERVIX: Uterus: 10.4 x 7.6 x 5.0 cm. Endometrium: 1.3 cm. Anteverted. There is no uterine mass. RIGHT OVARY: 5.2 x 4.4 x 4.0 cm, with a benign cyst measuring 3.8 cm. Blood flow is present in the right ovary. LEFT OVARY: Enlarged, measuring 7 x 5.9 x 6.4 cm, with an echogenic lesion measuring 5.8 x 4.6 x 5.1 cm. Blood flow is present in the left ovary. FREE FLUID: None. BLADDER: Unremarkable as visualized. Wall is normal thickness for degree of distention. US/Pelvic w/ Transvaginal IMPRESSION: Large echogenic left ovarian lesion measuring up to 5.8 cm consistent with the dermoid identified on the recent CT abdomen pelvis. Electronically Signed: Jordan Chang MD at 4:49 EDT ,
== END | disposition home or self-care (01) ==
LOC: US 16:46
PROVIDERS: Referring Provider Obstetrics & Gynecology; Visit Provider Obstetrics & Gynecology
DX: R10.2 Pelvic and perineal pain (principal)
CPT/HCPCS: 76830; 76856; 93976

== ENCOUNTER 2023-09-03 22:04 | Emergency (ER) | payer MEDICAID, SELFPAY ==
[2023-09-03 22:04] VITALS: BP 128/74; PULSE 80; RESP 16; O2SAT 98
[2023-09-03 22:05] VITALS: BP 126/82; PULSE 85; RESP 16; TEMP 36.6; O2SAT 98; BMI 33.0
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
[2023-09-03 23:30] LABS: Internal QC Validated? YES +Cl - CLEAR BKGD; Pregnancy, Serum, hCG Quali. NEGATIVE Negative
[2023-09-04 00:03] VITALS: BP 128/74; PULSE 80; RESP 16; TEMP 36.7; O2SAT 97
== END 2023-09-04 00:04 | disposition home or self-care (01) ==
PROVIDERS: Emergency Provider Emergency Medicine; PCP Nurse Practitioner Family; Visit Provider Emergency Medicine
DX: O34.80 Maternal care for other abnormalities of pelvic organs, unspecified trimester (principal); D27.9 Benign neoplasm of unspecified ovary; O99.891 Other specified diseases and conditions complicating pregnancy; K21.9 Gastro-esophageal reflux disease without esophagitis; Z79.899 Other long term (current) drug therapy; J45.909 Unspecified asthma, uncomplicated
CPT/HCPCS: 84703; 99283

== ENCOUNTER 2023-12-29 16:01 | Emergency (ER) | payer MEDICAID, SELFPAY ==
[2023-12-29 16:02] VITALS: BP 109/73; PULSE 77; RESP 18; TEMP 36.4; O2SAT 97
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
[2023-12-29] MEDS: Ondansetron 4 MG/2 ML Vial IV (16:53)
[2023-12-29] MEDS: morphine 8 MG/ML Syringe 6 MG IV (16:53)
[2023-12-29 16:57] VITALS: BMI 34.2
[2023-12-29 17:03] LABS: Internal QC Validated? YES +Cl - CLEAR BKGD; Pregnancy, Serum, hCG Quali. NEGATIVE Negative
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
[2023-12-29 18:00] VITALS: BP 99/57; PULSE 66; RESP 16; O2SAT 94
== END 2023-12-29 19:05 | disposition home or self-care (01) ==
PROVIDERS: Emergency Provider Emergency Medicine; PCP Nurse Practitioner Family; Visit Provider Emergency Medicine
DX: S32.039A Unspecified fracture of third lumbar vertebra, initial encounter for closed fracture (principal); F31.9 Bipolar disorder, unspecified; S70.01XA Contusion of right hip, initial encounter; S00.81XA Abrasion of other part of head, initial encounter; V58.6XXA Passenger in pick-up truck or van injured in noncollision transport accident in traffic accident, initial encounter; J45.909 Unspecified asthma, uncomplicated; K21.9 Gastro-esophageal reflux disease without esophagitis; F17.210 Nicotine dependence, cigarettes, uncomplicated
CPT/HCPCS: 70450; 72125; 72131; 73502; 84703; 96374; 96375; 99283; A4216; J2405